=== PATIENT | female | born 1990 | race American Indian/Alaskan Native ===

== ENCOUNTER 2018-01-07 17:45 | Emergency (ER) | payer OTHER ==
[2018-01-07 17:52] VITALS: BP 134/80
[2018-01-07 18:14] LABS: Basophils # (Auto) 0.1 K/mm3 (0.0-0.1); Basophils % (Auto) 0.9 % (0.0-1.8); Eosinophils # (Auto) 0.1 K/mm3 (0.0-0.4); Eosinophils % (Auto) 0.7 % (0.0-4.3); Hematocrit 34.9 % (30.3-42.9); Hemoglobin 11.7 gm/dl (10.1-14.3); Lymphocytes # (Auto) 1.9 K/mm3 (1.2-5.4); Lymphocytes % (Auto) 23.7 % (13.4-35.0); Mean Corpuscular HGB Conc 34 % (30-34); Mean Corpuscular Hemoglobin 30 pg (28-32); Mean Corpuscular Volume 89 fl (79-97); Monocytes # (Auto) 0.7 K/mm3 (0.0-0.8); Monocytes % (Auto) 8.3 % (0.0-7.3); Platelet Count 368 K/mm3 (140-440); Red Blood Count 3.94 M/mm3 (3.65-5.03); Red Cell Distribution Width 17.2 % (13.2-15.2)
[2018-01-07 18:29] LABS: Alanine Aminotransferase 10 units/L (7-56); Albumin 4.5 g/dL (3.9-5); BUN/Creatinine Ratio 18; Blood Urea Nitrogen 11 mg/dL (7-17); Calcium 9.2 mg/dL (8.4-10.2); Hemolysis Index 8
[2018-01-07] MEDS ORDERED: ZOFRAN ODT PO ONE (19:28)
[2018-01-07] MEDS ORDERED: ATIVAN PO ONE (19:28)
--- NOTE | 2018-01-07 19:32 | Emergency Department Report ---
HPI - General Chief Complaint: Nausea/Vomiting/Diarrhea Time Seen by Provider: 01/07/18 19:27 - HPI HPI: 27-year-old -[place] female comes in for new onset of nausea today. Patient denies any vomiting and denies any pain. Patient does admit to a runny nose denies sore throat denies cough denies fever denies chills denies sneezing. Patient is tearful when I entered the room. Patient reports that she is under a lot of stress as a little anxious and overwhelmed. Patient reports no past medical history currently takes no medications and has no known drug allergies ED Past Medical Hx - Past Medical History Previous Medical History?: No - Surgical History Past Surgical History?: No - Social History Smoking Status: Former Smoker Substance Use Type: Alcohol, Marijuana ED Review of Systems ROS: Stated complaint: NAUSEA Other details as noted in HPI Constitutional: denies: chills, fever Eyes: denies: eye pain, eye discharge, vision change ENT: denies: ear pain, throat pain Respiratory: denies: cough, shortness of breath, wheezing Cardiovascular: denies: chest pain, palpitations Endocrine: no symptoms reported Gastrointestinal: nausea. denies: abdominal pain, vomiting, diarrhea, constipation Genitourinary: denies: dysuria, frequency Musculoskeletal: denies: back pain, joint swelling, arthralgia Skin: denies: rash, lesions Neurological: denies: headache, weakness, paresthesias Psychiatric: anxiety, depression. denies: auditory hallucinations, visual hallucinations, homicidal thoughts, suicidal thoughts Hematological/Lymphatic: denies: easy bleeding, easy bruising Physical Exam - Physical Exam Vital Signs: Vital Signs 01/07/18 17:48 Temperature 98.5 F Pulse Rate 67 Respiratory 16 Rate Blood Pressure 134/80 O2 Sat by Pulse 99 Oximetry Physical Exam: GENERAL: Alert and oriented x3, no apparent distress, Normal Gait, atraumatic. Tearful during interviewing. HEAD: Head is normocephalic and a-traumatic. EYES: Extra ocular muscles are intact. Pupils are equal, round, and reactive to light and accommodation. NOSE: Nose symetrical, Nontender,Nares appeared normal. MOUTH:Mouth is well hydrated and without lesions. Patent airways. NECK: Supple. Non edematous, No carotid bruits. No lymphadenopathy or thyromegaly. LUNGS: Symetrical with respiration, No wheezing, no rales or crackles, CTAB. HEART: S1, S2 present, regular rate and rhythm without murmur, no rubs, no gallops. EXTREMITIES/MUSCULOSKELETAL: No cyanosis, clubbing, rash, lesions or edema. Full ROM bilaterally. UE/LE Pulses 2+ bilaterally. LE and UE 5+ strength bilaterally NEUROLOGIC: No focal Deficit, Cranial nerves II through XII are grossly intact. No loss of sensation, No facial droop, PSYCHIATRIC: Mood is congruent with affect, patient is tearful flat affectside or homicidal ideation SKIN: Warm and dry, No lesions, No ulceration or induration present ED Course Vital Signs 01/07/18 17:48 Temperature 98.5 F Pulse Rate 67 Respiratory 16 Rate Blood Pressure 134/80 O2 Sat by Pulse 99 Oximetry - Reevaluation(s) Reevaluation #1: 01/07/18 20:36 Patient reports that she feels much better now she does not have any more nausea. ED Medical Decision Making - Lab Data Result diagrams: 01/07/18 17:59 01/07/18 17:59 - Medical Decision Making Patient has been evaluated by this provider fast track. This provided some direct denies patient appears to be under anxiety and feeling down. I discussed the patient not give her a little bit of Zofran to help with her nausea and Ativan 0.5 mg to see if we can help with her anxiety. I also discussed the patient that we need to refer her to her primary care provider as well as mental health for her to discuss her feelings and why she still anxious and feeling down. Patient verbalized understanding and appears to want help. Critical care attestation.: If time is entered above; I have spent that time in minutes in the direct care of this critically ill patient, excluding procedure time. ED Disposition Clinical Impression: Anxiety, Nausea alone Disposition: DC-01 TO HOME OR SELFCARE Is pt being admited?: No Does the pt Need Aspirin: No Condition: Stable Instructions: Anxiety (ED) Additional Instructions: Please follow up with your primary care provider when he gets back to [place]. Referrals: PRIMARY CARE, [Primary Care Provider] - 3-5 Days Forms: Work/School Release Form(ED)
[2018-01-07 20:21] LABS: Bacteria,Urine 1+ /HPF (Negative); Bilirubin,Urine NEG (Negative); Blood,Urine SM (Negative); Color,Urine Yellow (Yellow); Mucus,Urine FEW /HPF; Protein,Urine <15 mg/dL mg/dL (Negative); Urobilinogen,Urine < 2.0 mg/dL (<2.0)
[2018-01-07 20:22] LABS: HCG Qualitative,Urine Negative (Negative)
== END 2018-01-07 20:42 | disposition home or self-care (01) ==
LOC: ED 17:45
DX: F41.9 Anxiety disorder, unspecified (principal); Z87.891 Personal history of nicotine dependence
CPT/HCPCS: 36415; 80053; 81001; 81025; 85025; 99283; Q0162